=== PATIENT | female | born 2000 | race Caucasian/White ===

== ENCOUNTER 2021-05-29 04:10 | Emergency (ER) | payer OTHER ==
[~2021-05-29] VITALS: Ht 165.1 cm; Wt 72.1 kg
--- NOTE | 2021-05-29 04:10 | NUR ---
PT KING PARADA, PREBOOK. TAKEN TO CHAIR
[2021-05-29 04:16] VITALS: BP 128/76
--- NOTE | 2021-05-29 04:17 | NUR ---
Dr. Matos examining patient.
--- NOTE | 2021-05-29 04:25 | NUR ---
PATIENT TAKEN AN XRAY
--- NOTE | 2021-05-29 04:48 | NUR ---
PT TAKEN TO BED 7
[2021-05-29 05:07] LABS: BASOPHILS # (AUTO) 0.1 K/uL (0.00-0.22); BASOPHILS % (AUTO) 0.5 % (0.0-2.0); EOSINOPHILS % (AUTO) 0.5 % (0.0-4.0); HEMOGLOBIN 14.9 g/dL (12.0-16.0); LYMPHOCYTES # (AUTO) 1.7 K/uL (2.5-16.5); LYMPHOCYTES % (AUTO) 17.1 % (20.5-51.1); MEAN CORPUSCULAR HEMOGLOBIN 32 pg (27-31); MEAN CORPUSCULAR HGB CONC 34 g/dL (33-37); MEAN CORPUSCULAR VOLUME 93.2 fL (80-94); MONOCYTES # (AUTO) 0.6 K/uL (0.8-1.0); MONOCYTES % (AUTO) 5.4 % (1.7-9.3); NEUTROPHILS # (AUTO) 7.8 K/uL (1.8-7.7); NEUTROPHILS % (AUTO) 76.5 % (42.2-75.2); PLATELET COUNT (AUTO) 275 K/uL (140-450); RED BLOOD CELL COUNT(AUTO) 4.72 MIL/uL (4.20-5.40); RED CELL DISTRIBUTION WIDTH 13.2 % (11.6-13.7); WHITE BLOOD COUNT (AUTO) 10.2 K/uL (4.8-10.8)
--- NOTE | 2021-05-29 05:09 | NUR ---
PT MOVED TO ER 11
[2021-05-29 05:22] LABS: ALBUMIN 4.2 g/dL (3.4-5.0); ANION GAP 14.2 (8-16); CARBON DIOXIDE 26.4 mmol/L (21-32); CREATININE 0.9 mg/dL (0.6-1.3); POTASSIUM 3.6 mmol/L (3.5-5.1); TOTAL BILIRUBIN 0.4 mg/dL (0.0-1.0)
--- NOTE | 2021-05-29 05:22 | NUR ---
X-Ray at bedside.
--- NOTE | 2021-05-29 05:49 | NUR ---
PT TAKEN TO CT
--- NOTE | 2021-05-29 06:08 | NUR ---
PT RETURN FROM CT
[2021-05-29] MEDS ORDERED: HYDROcodone/APAP 5/325 MG 1 TAB TAB PO ONE (07:10)
[2021-05-29] MEDS ORDERED: HYDR-5080 PO (07:11)
--- NOTE | 2021-05-29 07:16 | NUR ---
Pt report given to Ana Maria VAZQUEZ. Transfer of care at this time.
--- NOTE | 2021-05-29 07:21 | NUR ---
REPORT RECEIVED FROM EGORGE MENDOZA. TRANSFER OF CARE RECEIVED
[2021-05-29 07:29] VITALS: BP 145/69
--- NOTE | 2021-05-29 07:30 | NUR ---
Patient discharged with v/s stable. Written and verbal after care instructions given and explained. Patient alert, oriented and verbalized understanding of instructions. Ambulatory with in custody. All questions addressed prior to discharge. ID band removed. Patient advised to follow up with PMD. Rx of hydrocodone/acetaminophen given. Patient educated on indication of medication including possible reaction and side effects. Opportunity to ask questions provided and answered. left in custody of nestor vann
== END 2021-05-29 07:30 ==
LOC: MED 04:10
DX: S09.90XA Unspecified injury of head, initial encounter (principal); S29.9XXA Unspecified injury of thorax, initial encounter; M25.572 Pain in left ankle and joints of left foot; V89.2XXA Person injured in unspecified motor-vehicle accident, traffic, initial encounter; Y93.89 Activity, other specified; Y92.89 Other specified places as the place of occurrence of the external cause; Y99.8 Other external cause status
CPT/HCPCS: 36415; 70450; 70486; 71260; 73610; 80053; 84703; 85025; 99285; Q9967